=== PATIENT | male | born 1990 | race Hispanic/Latino ===

== ENCOUNTER 2017-05-17 16:48 | Emergency (ER) | payer OTHER ==
[2017-05-17 17:05] VITALS: BP 121/80; PULSE 98; RESP 16; TEMP 98.4; O2SAT 96
--- NOTE | 2017-05-17 18:00 | ED PDOC ---
Lower Extremity Pain/Injury Time Seen by Provider: 05/17/17 17:11 Chief Complaint (Nursing): Lower Extremity Problem/Injury Chief Complaint (Provider): Ankle Pain History Per: Patient History/Exam Limitations: no limitations Onset/Duration Of Symptoms: Days (1 day) Current Symptoms Are (Timing): Still Present Additional Complaint(s): 27 y/o male presents to the ED complaining of left ankle pain, onset of 1 day. Patient states last night he twisted his left ankle. Patient was initially able to bear weight on left leg, but the pain has progressively gotten worse and he is now unable to bear weight on left extremity due to pain. He denies of any previous injuries to the ankle, numbness or tingling, and knee pain. Past Medical History Reviewed: Historical Data, Nursing Documentation, Vital Signs Vital Signs: Last Vital Signs Temp 98.4 F 05/17/17 17:03 Pulse 98 H 05/17/17 17:03 Resp 16 05/17/17 17:03 BP 121/80 05/17/17 17:03 Pulse Ox 96 05/17/17 17:03 - Medical History PMH: No Chronic Diseases - Surgical History Surgical History: No Surg Hx - Family History Family History: States: Unknown Family Hx - Social History Current smoker - smoking cessation education provided: No Ex-Smoker (has not smoked in the last 12 months): No Alcohol: None Drugs: Denies - Allergies Allergies/Adverse Reactions: Allergies Allergy/AdvReac Type Severity Reaction Status Date / Time No Known Allergies Allergy Verified 05/17/17 17:03 Review of Systems ROS Statement: Except As Marked, All Systems Reviewed And Found Negative Constitutional: Negative for: Fever Musculoskeletal: Positive for: Foot Pain (ankle pain), Other (knee pain) Neurological: Negative for: Numbness Physical Exam - Reviewed Nursing Documentation Reviewed: Yes Vital Signs Reviewed: Yes - Physical Exam Extremity: Positive for: Tenderness (mild tenderness with left lateral malleolus to ankle), Capillary Refill (less than 2 seconds), Swelling DTR - Ankle (R): 2+ DTR - Ankle (L): 2+ - ECG O2 Sat by Pulse Oximetry: 96 (RA) Pulse Ox Interpretation: Normal Medical Decision Making Medical Decision Making: Time: --17:17 Impression: --left ankle sprain rule out fracture Plan: --Left Ankle X-ray Reassess --L ankle x-ray: no fx Ankle immobilized with ankle aircast splint applied by RN. Crutches provided. Scribe Attestation: Documented by Gary Rucker acting as a scribe for SCOTTIE Becerra Disposition - Clinical Impression Clinical Impression: Ankle injury - Patient ED Disposition Is Patient to be Admitted: No - Disposition Referrals: Ashley Galloway DPM [Medical Doctor] - Disposition: Routine/Home Disposition Time: 18:23 Condition: STABLE Additional Instructions: Take Motrin at home for pain. Follow up with Dr. Galloway, supervisor phosphorus processing, for further evaluation. Instructions: Ankle Sprain (ED), Crutch Instructions (ED), Ankle Stirrup Splint (ED), RICE Therapy (ED) Forms: [employer] (Maltese), [facility] ED School/Work Excuse
--- NOTE | 2017-05-18 11:42 | RAD ---
PROCEDURE: Left Ankle Radiographs. HISTORY: trauma COMPARISON: None FINDINGS: BONES: Normal. No fracture. JOINTS: Normal. No osteoarthritis. Ankle mortise maintained. Talar dome intact SOFT TISSUES: Lateral soft tissue swelling may indicate ligamentous injury. OTHER FINDINGS: None. IMPRESSION: No acute fracture. Lateral soft tissue swelling noted.
== END 2017-05-17 18:41 | disposition home or self-care (01) ==
LOC: H.ER 16:48
DX: S93.402A Sprain of unspecified ligament of left ankle, initial encounter (principal); Z87.891 Personal history of nicotine dependence